=== PATIENT | female | born 1965 | race Caucasian/White ===

== ENCOUNTER → 2016-08-20 | Outpatient (CLI) | payer BC ==
[~2016-08-20] MED LIST: LOPRESSOR 25 MG25 MG PO
[2016-08-20 19:43] LABS: HEMOGLOBIN 14.9 gm/dl (12.3-15.3); RED BLOOD COUNT 5.15 M/UL (4.00-5.10); WHITE BLOOD COUNT 5.1 K/UL (4.5-11.0)
[2016-08-20 20:02] LABS: BUN/CREATININE RATIO 32 (0-10)
== END ==
LOC: LAB 19:19
PROVIDERS: Family Medicine
DX: M17.11 Unilateral primary osteoarthritis, right knee (principal); E66.9 Obesity, unspecified
CPT/HCPCS: 80053; 80061; 84443; 85025